=== PATIENT | male | born 1960 | race Caucasian/White ===

== ENCOUNTER 2017-04-02 12:50 | Inpatient (IN) ==
--- NOTE | 2017-04-02 13:43 | Internal Med History&Physical ---
Date of Encounter: 04/02/17 Time of Encounter: 13:42 Internal Medicine - H&P: HPI Chief complaint: Status post bilateral total knee redo's Admitted From: Hospital to Hospital Transfer Plans for Post Hospital Care: Home History of present illness: Mr. Galvan is a 56 year old male Patient has had bad hardware and is had a reduced total knee replacement Past Med Surg Social Fam HX - Past Medical History Medical history: hyperlipidemia, hypertension Psychiatric history: no psych history - Past Surgical History Surgical History: knee replacement - Social History Smoking Status: Former smoker Smokeless Tobacco Status: No Alcohol use: occasionally Drug use: none - Family History Father Hx Family Cardiac Disorders: Yes Mother Hx Family Endocrine Disorder: Yes (DM) Internal Medicine - H&P: Meds Metoprolol [Lopressor] 25 mg PO BID 09/18/15 [History] Aspirin Enteric Coated [Aspirin EC] 325 mg PO DAILY #21 tablet. 03/30/17 [Rx] OxyCODONE Immed Rel [Roxicodone 5 MG] 5 - 10 mg PO Q6HR PRN #40 tablet 03/30/17 [Rx] Aspirin Enteric Coated [Aspirin EC] 81 mg PO DAILY 03/31/17 [History] Celecoxib [Celebrex] 200 mg PO BID 03/31/17 [History] Ibuprofen [Motrin] 800 mg PO Q8HR PRN 03/31/17 [History] Tadalafil [Cialis] 5 mg PO DAILY 03/31/17 [History] Allergies No Known Allergies Allergy (Verified 03/31/17 07:09) All Systems PM: A 10-system review of systems was performed and is negative for pertinent findings except as documented above in the HPI. - Constitutional Vitals: Temp Pulse Resp BP Pulse Ox 97.6 F 82 16 133/73 94 04/02/17 13:20 04/02/17 13:20 04/02/17 13:20 04/02/17 13:20 04/02/17 13:20 - Head Head exam: Present: atraumatic, normal inspection, normocephalic - Neck Neck exam general surgery: Present: supple, trachea midline. Absent: lymphadenopathy - Respiratory Respiratory exam: Present: CTAB. Absent: accessory muscle use, rales, rhonchi, wheezes - Cardiovascular Cardiovascular exam: Present: RRR, +S1, +S2. Absent: diastolic murmur, gallop, rubs, systolic murmur - Expanded Lower Extremities Exam Knee exam: Present: tenderness (Dressings bilaterally are clean and dry)
[2017-04-02] MEDS ORDERED: *HR* OxyCODONE Immed Rel 5 MG TABLET PO PRN (14:11)
[2017-04-02] MEDS ORDERED: Ibuprofen 800 MG TABLET PO PRN (14:11)
[2017-04-02] MEDS: *HR* OxyCODONE Immed Rel 5 MG TABLET PO PRN ×2 (14:57→20:53)
[2017-04-02] MEDS: Celecoxib 200 MG CAPSULE PO SCH (20:52)
[2017-04-03] MEDS: *HR* OxyCODONE Immed Rel 5 MG TABLET PO PRN ×6 (02:18→22:20)
[2017-04-03 05:04] LABS: Basophils % 0.3 %; Eosinophils # 0.2 K/mcL (0.0-0.6); Eosinophils % 1.9 %; Hematocrit 25.9 % (37.5-50.1); INR 1.1; Immature Granulocytes % 0.9 % (0-4); Lymphocytes # 1.9 K/mcL (0.6-4.6); Lymphocytes % 21.7 %; Mean Corpuscular HGB Conc 34.7 g/dL (31.6-35.5); Mean Corpuscular Hemoglobin 30.4 pg (28.0-33.3); Mean Corpuscular Volume 87.5 fL (83.0-100.0); Mean Platelet Volume 9.3 fL (9.4-12.4); Neutrophils # 5.6 K/mcL (1.6-8.9); Platelet Count 110 K/mcL (140-400); Prothrombin Time 11.7 Seconds (9.4-12.1); Red Blood Count 2.96 M/mcL (4.19-5.50); Segmented Neutrophils % 64.2 %
[2017-04-03 05:07] LABS: Activated Partial Thrombo Time 24.7 Seconds (26.0-36.0)
[2017-04-03 05:11] LABS: BUN/Creatinine Ratio 15 (6-26); Blood Urea Nitrogen 13 mg/dL (8-26); Calcium 8.5 mg/dL (8.6-10.8); Carbon Dioxide 28 mEq/L (19-29); Chloride 100 mEq/L (98-109); Glucose 105 mg/dL (70-99); Osmolality,Calculated 280 (280-300); Sodium 135 mEq/L (136-145); eGFR For African Americans > 60 (> 60); eGFR For Non-African Americans > 60 (> 60)
[2017-04-03] MEDS: *HR* Enoxaparin 40 MG/0.4 ML SYRINGE SQ SCH (06:07)
[2017-04-03] MEDS: Aspirin Enteric Coated 325 MG Tablet PO SCH (08:32)
[2017-04-03] MEDS: Celecoxib 200 MG CAPSULE PO SCH ×2 (08:32→21:03)
[2017-04-03] MEDS ORDERED: TADALAFIL 5 MG PO SCH (09:00)
--- NOTE | 2017-04-03 15:24 | Internal Med Progress Note ---
Date of Encounter: 04/03/17 Time of Encounter: 15:22 - Assessment and plan (1) History of total bilateral knee replacement Current Visit: Yes Status: Acute Assessment and plan: Patient was here for the above surgery for rehabilitation and doing well. Dressings are clean and dry (2) Degenerative arthritis of knee, bilateral Current Visit: No Status: Acute Assessment and plan: Cause of surgery Qualifiers: Osteoarthritis type: primary Qualified Code(s): M17.0 - Bilateral primary osteoarthritis of knee - Time Spent With Patient less than 15 minutes - Subjective Interval history: Happy to report that Mr. Galvan states pain control working. He is able to participate in ambulate overall doing well will go home this weekend - Constitutional Vitals: Temp Pulse Resp BP Pulse Ox 97.7 F 85 16 122/73 94 04/03/17 12:00 04/03/17 12:00 04/03/17 12:00 04/03/17 12:00 04/03/17 12:00 - Head Head exam: Present: atraumatic, normal inspection, normocephalic - Neck Neck exam general surgery: Present: supple, trachea midline. Absent: lymphadenopathy - Respiratory Respiratory exam: Present: CTAB. Absent: accessory muscle use, rales, rhonchi, wheezes - Cardiovascular Cardiovascular exam: Present: RRR, +S1, +S2. Absent: diastolic murmur, gallop, rubs, systolic murmur Internal Medicine: Result - Labs CBC & Chem 7: 04/03/17 04:59 04/03/17 04:59 Labs: Short CBC 04/03/17 Range/Units 04:59 WBC 8.8 (4.3-11.1) K/mcL Hgb 9.0 L (12.9-16.9) g/dL Hct 25.9 L (37.5-50.1) % Plt Count 110 L (140-400) K/mcL Neutrophils # 5.6 (1.6-8.9) K/mcL BMP 04/03/17 04:59 Sodium 135 L Potassium 4.0 Chloride 100 Carbon Dioxide 28 BUN 13 Creatinine 0.85 Glucose 105 H Calcium 8.5 L Lab is stable - ABG Interpretation ABG results: PT/INR, D-dimer PT 11.7 Seconds (9.4-12.1) 04/03/17 04:59 Consult Discharge Plan - Plan Referrals: Jeremiah Gracia DO [Primary Care Provider] -
[2017-04-04] MEDS: *HR* Enoxaparin 40 MG/0.4 ML SYRINGE SQ SCH (06:21)
[2017-04-04] MEDS: *HR* OxyCODONE Immed Rel 5 MG TABLET PO PRN ×2 (06:21→13:24)
[2017-04-04 07:06] VITALS: BP 119/71
[2017-04-04] MEDS: Celecoxib 200 MG CAPSULE PO SCH (08:35)
[2017-04-04] MEDS: Aspirin Enteric Coated 325 MG Tablet PO SCH (08:35)
--- NOTE | 2017-04-04 13:19 | Discharge Summary ---
Date of Encounter: 04/04/17 Time of Encounter: 13:12 - Discharge Diagnosis (1) History of total bilateral knee replacement Priority: Primary Status: Acute (2) Degenerative arthritis of knee, bilateral Priority: Primary Status: Acute Qualifiers: Osteoarthritis type: primary Qualified Code(s): M17.0 - Bilateral primary osteoarthritis of knee - Discharge Medications Home Medications: Metoprolol [Lopressor] 25 mg PO BID 09/18/15 [History] Aspirin Enteric Coated [Aspirin EC] 325 mg PO DAILY #21 tablet. 03/30/17 [Rx] Celecoxib [Celebrex] 200 mg PO BID 03/31/17 [History] Ibuprofen [Motrin] 800 mg PO Q8HR PRN 03/31/17 [History] Tadalafil [Cialis] 5 mg PO DAILY 03/31/17 [History] OxyCODONE Immed Rel [Roxicodone 5 MG] 10 mg PO Q4HR PRN 04/02/17 [History] Allergies/Adverse Reactions: Allergies No Known Allergies Allergy (Verified 03/31/17 07:09) Date of admission: 04/02/17 12:50 Primary care physician: Jeremiah Gracia DO Consults: 04/02/17 13:50 Consult to Occupational Therapy [CONS] Routine Comment: Evaluate, develop and implement POC Reason for Consult: eval and tx Consult to Physical Therapy [CONS] Routine Comment: Evaluate, develop and implement POC Reason for Consult: eval and tx Consult to Recreational Therapy [CONS] Routine Comment: Evaluate, develop and implement POC Consult to Neck Band Setter [CONS] Routine Reason for SW Consult: eval and tx Discharging clinician: Jeremiah Gracia Anticipated date of discharge: 04/04/17 - Patient Status Disposition: Home, Self-Care Condition: Good Functional capacity at discharge: uses cane/walker Overall status at discharge: patient is progressing back to baseline - Discharge Instructions Instructions: Oxycodone, Rapid Release (By mouth) Follow Up With: Shayy Nazario [Outside] - 04/09/17 9:00 am ([facility] [place] [address] ) Chris Rendon MD [Partnered Physician] - 04/30/17 5:35 pm Tania Wright PAC [Physician Wash Tub Machine Operator] - 04/10/17 10:15 am Daryl Lorenzana DO [Partnered Physician] - 04/11/17 1:00 pm (Farideh Milner CNP) - Diet and Activity Activity: ambulate only with your walker Diet: advance to your usual diet Interval History: Patient was brought here after redo bilateral total knee replacements due to failure of prosthesis Hospital course: Mr. Galvan is a 56 year old male Who came for rehabilitation is Ken Sprague walking also better distances pain is controlled doing well. He will have follow-up visits and prescription - Time Spent with Patient Total time spent providing and/or coordinating discharge services: Less than 30 minutes - Constitutional Vitals: Temp Pulse Resp BP Pulse Ox 96.4 F L 93 13 119/71 95 04/04/17 07:00 04/04/17 07:00 04/04/17 07:00 04/04/17 07:00 04/04/17 07:00 - Head Head exam: Present: atraumatic, normal inspection, normocephalic - Neck Neck exam general surgery: Present: supple, trachea midline. Absent: lymphadenopathy - Respiratory Respiratory exam: Present: CTAB. Absent: accessory muscle use, rales, rhonchi, wheezes - Cardiovascular Cardiovascular exam: Present: RRR, +S1, +S2. Absent: diastolic murmur, gallop, rubs, systolic murmur
== END 2017-04-04 14:29 | disposition home or self-care (01) | DRG 561 ==
LOC: INPGRE 12:50
PROVIDERS: ADMIT Internal Medicine; ATTEND Internal Medicine